=== PATIENT | female | born 1995 | race Caucasian/White ===

== ENCOUNTER 2018-04-10 15:49 | Inpatient (IN) | payer MEDICAID ==
[2018-04-10] MEDS ORDERED: METHYLERGONOVINE 0.2 MG INJ IM (17:00)
[2018-04-10] MEDS ORDERED: LIDOCAINE 1% (MPF) 30 ML INJ INJ (17:00)
[2018-04-10] MEDS ORDERED: CARBOPROST 250 MCG INJ IM (17:00)
[2018-04-10] MEDS ORDERED: IBUPROFEN 600 MG TAB PO (17:00)
[2018-04-10] MEDS ORDERED: MISOPROSTOL 200 MCG TAB PR (17:00)
[2018-04-10] MEDS ORDERED: OXYTOCIN 30 UNITS/LR 500 ML IV (17:00)
[2018-04-10] MEDS ORDERED: BUTORPHANOL 2 MG INJ IV (17:00)
[2018-04-10] MEDS ORDERED: OXYCODONE/ASPIRIN (4.88/325) TAB PO (17:00)
[2018-04-10] MEDS: LACTATED RINGER'S 1,000 ML IV (17:04)
[2018-04-10 17:24] LABS: ADD MAN DIFF? NO
[2018-04-10 17:27] LABS: WHITE BLOOD COUNT 11.3 10^3/ul (4.8-10.8)
[2018-04-10 17:27] LABS: BASOPHILS % 0.4 % (0.0-2.0); EOSINOPHILS # 0.1 10^3/ul (0.0-0.5); EOSINOPHILS % 0.9 % (0.0-7.0); HEMOGLOBIN 12.5 g/dl (12.0-16.0); LYMPHOCYTES # 1.9 10^3/ul (0.8-2.9); LYMPHOCYTES % 16.5 % (15.0-51.0); MEAN CORPUSCULAR HEMOGLOBIN 28.9 pg (29.0-33.0); MEAN CORPUSCULAR HGB CONC 33.8 g/dl (32.0-37.0); MEAN CORPUSCULAR VOLUME 85.5 fl (82.0-101.0); MEAN PLATELET VOLUME 9.4 fl (7.4-10.4); MONOCYTE # 0.7 10^3/ul (0.3-0.9); MONOCYTES % 6.3 % (0.0-11.0); NEUTROPHIL # 8.5 10^3/ul (1.6-7.5); NEUTROPHILS % 75.4 % (39.0-77.0); PLATELET COUNT 363 10^3/UL (140-415); RED BLOOD COUNT 4.33 10^6/ul (4.20-5.40); RED CELL DISTRIBUTION WIDTH 14.4 % (11.5-14.5)
[2018-04-10 17:48] LABS: INR 0.87; PARTIAL THROMBOPLASTIN TIME 27.9 Sec (23.0-35.0); PROTIME 11.9 Sec (11.9-14.9); PT RATIO 0.9
[2018-04-10 18:15] LABS: HEPATITIS B SURFACE ANTIGEN NEGATIVE (NEGATIVE)
[2018-04-10 22:17] LABS: RAPID PLASMA REAGIN NONREACTIVE (NR)
[2018-04-11] MEDS: LACTATED RINGER'S 1,000 ML IV ×2 (00:14→01:17)
[2018-04-11] MEDS ORDERED: NALOXONE (0.4 MG/ML) INJ IV (01:00)
[2018-04-11] MEDS ORDERED: ONDANSETRON 4 MG INJ IV (01:00)
[2018-04-11] MEDS ORDERED: FENTAnyl 2MCG/ML-ROPIV 0.2% 100 ML BAG EPI (01:00)
[2018-04-11] MEDS: OXYTOCIN 30 UNITS/LR 500 ML IV ×2 (06:48→07:21)
[2018-04-11 06:49] LABS: AMPHETAMINE/METHAMPHETAMINE Negative (NEGATIVE); BARBITURATES Negative (NEGATIVE); BENZODIAZEPINES Negative (NEGATIVE); CANNABINOIDS Negative (NEGATIVE); COCAINE Negative (NEGATIVE); OPIATES Negative (NEGATIVE)
[2018-04-11] MEDS ORDERED: ACETAMINOPHEN 325 MG TAB PO (10:00)
[2018-04-11] MEDS ORDERED: OXYTOCIN 30 UNITS/LR 500 ML IV (10:00)
[2018-04-11] MEDS ORDERED: MISOPROSTOL 200 MCG TAB PR (10:00)
[2018-04-11] MEDS ORDERED: HYDROCODONE/APAP (5/325) TAB PO (10:00)
[2018-04-11] MEDS ORDERED: DIBUCAINE 1% 30 GM OINT TOP (10:00)
[2018-04-11] MEDS ORDERED: METHYLERGONOVINE 0.2 MG INJ IM (10:00)
[2018-04-11] MEDS ORDERED: CARBOPROST 250 MCG INJ IM (10:00)
[2018-04-11] MEDS: BENZOCAINE 20% 56 ML SPRAY TOP (11:03)
[2018-04-11] MEDS: WITCH HAZEL/GLYCERIN PAD PR (11:03)
[2018-04-11] MEDS: IBUPROFEN 600 MG TAB PO ×2 (11:59→18:00)
[2018-04-11] MEDS: LACTATED RINGER'S 1,000 ML IV* ×2 (11:59→17:44)
[2018-04-11] MEDS: SENNA/DOCUSATE NA (8.6MG/50MG) TAB PO (21:21)
[2018-04-12] MEDS: LACTATED RINGER'S 1,000 ML IV* ×2 (01:44→09:44)
[2018-04-12] MEDS: IBUPROFEN 600 MG TAB PO ×4 (06:06→17:32)
[2018-04-12 06:46] LABS: ADD MAN DIFF? NO
[2018-04-12 06:47] LABS: WHITE BLOOD COUNT 12.5 10^3/ul (4.8-10.8)
[2018-04-12 06:47] LABS: BASOPHIL # 0.1 10^3/ul (0.0-0.1); BASOPHILS % 0.4 % (0.0-2.0); EOSINOPHILS # 0.2 10^3/ul (0.0-0.5); EOSINOPHILS % 1.4 % (0.0-7.0); HEMATOCRIT 31.7 % (37.0-47.0); HEMOGLOBIN 10.5 g/dl (12.0-16.0); LYMPHOCYTES # 2.2 10^3/ul (0.8-2.9); LYMPHOCYTES % 17.6 % (15.0-51.0); MEAN CORPUSCULAR HGB CONC 33.1 g/dl (32.0-37.0); MEAN CORPUSCULAR VOLUME 87.6 fl (82.0-101.0); MEAN PLATELET VOLUME 9.3 fl (7.4-10.4); MONOCYTE # 0.9 10^3/ul (0.3-0.9); MONOCYTES % 7.3 % (0.0-11.0); NEUTROPHIL # 9.1 10^3/ul (1.6-7.5); NEUTROPHILS % 72.7 % (39.0-77.0); PLATELET COUNT 273 10^3/UL (140-415); RED BLOOD COUNT 3.62 10^6/ul (4.20-5.40); RED CELL DISTRIBUTION WIDTH 14.9 % (11.5-14.5)
[2018-04-12] MEDS: SENNA/DOCUSATE NA (8.6MG/50MG) TAB PO ×2 (09:53→20:46)
[2018-04-13] MEDS: IBUPROFEN 600 MG TAB PO ×3 (00:15→11:58)
[2018-04-13] MEDS: SENNA/DOCUSATE NA (8.6MG/50MG) TAB PO (09:20)
[2018-04-13] MEDS: DIPHTH/TET/ACEL PERTUSS (ADULT) 0.5 ML VIAL IM* (09:21)
== END 2018-04-13 12:30 | disposition home or self-care (01) | DRG 807 ==
LOC: OBT 15:49 → PP1 04-11 09:49 → L-D 15:51 → OBT 16:30 → L-D 16:30
PROVIDERS: Obstetrics & Gynecology
PROC: 10E0XZZ Delivery of Products of Conception, External Approach (ICD-10-PCS; principal; 2018-04-11)
PROC: 0KQM0ZZ Repair Perineum Muscle, Open Approach (ICD-10-PCS; 2018-04-11)
DX: O70.1 Second degree perineal laceration during delivery (principal); Z37.0 Single live birth; Z3A.39 39 weeks gestation of pregnancy
CPT/HCPCS: 62319; 76815; 76818; 80307; 85025; 85610; 85730; 86592; 86850; 86900; 86901; 87340

== ENCOUNTER 2018-05-25 18:24 | Emergency (ER) | payer SELFPAY, MEDICAID | END 2018-05-25 22:30 | disposition left against medical advice (07) | LOC: FTE 18:24 | DX: Z53.21 Procedure and treatment not carried out due to patient leaving prior to being seen by health care provider (principal) ==

== ENCOUNTER 2018-06-23 10:27 | Emergency (ER) | payer MEDICAID ==
[2018-06-23] MEDS: LIDOCAINE/MYLANTA 40 ML BTL PO (11:10)
[2018-06-23] MEDS: BELLADONNA/PHENOBARBITAL TAB PO (11:10)
[2018-06-23 11:27] LABS: ADD MAN DIFF? NO
[2018-06-23 11:38] LABS: BASOPHILS % 0.4 % (0.0-2.0); EOSINOPHILS # 0.2 10^3/ul (0.0-0.5); EOSINOPHILS % 1.5 % (0.0-7.0); HEMATOCRIT 41.1 % (37.0-47.0); HEMOGLOBIN 14.2 g/dl (12.0-16.0); LYMPHOCYTES # 2.4 10^3/ul (0.8-2.9); LYMPHOCYTES % 23.9 % (15.0-51.0); MEAN CORPUSCULAR HEMOGLOBIN 29.8 pg (29.0-33.0); MEAN CORPUSCULAR HGB CONC 34.5 g/dl (32.0-37.0); MEAN CORPUSCULAR VOLUME 86.2 fl (82.0-101.0); MONOCYTE # 0.5 10^3/ul (0.3-0.9); MONOCYTES % 5.1 % (0.0-11.0); NEUTROPHIL # 6.8 10^3/ul (1.6-7.5); NEUTROPHILS % 68.7 % (39.0-77.0); RED BLOOD COUNT 4.77 10^6/ul (4.20-5.40); RED CELL DISTRIBUTION WIDTH 13.9 % (11.5-14.5)
[2018-06-23 11:38] LABS: WHITE BLOOD COUNT 9.9 10^3/ul (4.8-10.8)
[2018-06-23 11:40] LABS: PLATELET COUNT 393 10^3/UL (140-415); POSITIVE DIFF @See below
[2018-06-23 11:47] LABS: ADD UMIC YES; UR ASCORBIC ACID NEGATIVE (NEGATIVE); UR BACTERIA FEW /HPF (NONE SEEN); UR BILIRUBIN (Dip) NEGATIVE (NEGATIVE); UR BLOOD (Dip) 3+ mg/dL (NEGATIVE); UR CLARITY CLOUDY (CLEAR); UR COLOR YELLOW (YELLOW); UR GLUCOSE (Dip) NEGATIVE (NEGATIVE); UR KETONES (Dip) NEGATIVE (NEGATIVE); UR LEUKOCYTE ESTERASE (Dip) 3+ Leu/ul (NEGATIVE); UR MUCUS FEW /HPF (NONE SEEN); UR NITRITE (Dip) NEGATIVE (NEGATIVE); UR RBC 83 /HPF (0-5); UR SPECIFIC GRAVITY (Dip) 1.018 (1.003-1.030); UR SQUAMOUS EPITHELIAL CELL MANY /HPF (FEW); UR TOTAL PROTEIN (Dip) NEGATIVE (NEGATIVE); UR UROBILINOGEN (Dip) NEGATIVE (NEGATIVE); UR WBC 70 /HPF (0-5)
[2018-06-23 11:48] LABS: ALANINE AMINOTRANSFERASE 125 IU/L (13-69); ALBUMIN 4.5 g/dl (3.3-4.9); ALBUMIN/GLOBULIN RATIO 1.09; ALKALINE PHOSPHATASE 158 IU/L (42-121); ANION GAP 11 (5-13); ASPARTATE AMINO TRANSFERASE 97 IU/L (15-46); BILIRUBIN,INDIRECT 0.4 mg/dl (0-1.1); BILIRUBIN,TOTAL 0.4 mg/dl (0.2-1.3); BLOOD UREA NITROGEN 10 mg/dl (7-20); CALCIUM 9.7 mg/dl (8.4-10.2); CARBON DIOXIDE 23 mmol/L (21-31); CHLORIDE 110 mmol/L (97-110); CREATININE 0.64 mg/dl (0.44-1.00); Estimated GFR > 60 mL/min (>60); GLUCOSE 87 mg/dl (70-220); LIPASE 74 U/L (23-300); POTASSIUM 4.2 mmol/L (3.5-5.1); SODIUM 144 mmol/L (135-144); TOTAL PROTEIN 8.6 g/dl (6.1-8.1)
== END 2018-06-23 12:09 | disposition home or self-care (01) ==
LOC: FTE 12:09
DX: N39.0 Urinary tract infection, site not specified (principal); K80.20 Calculus of gallbladder without cholecystitis without obstruction
CPT/HCPCS: 36415; 76705; 80053; 81001; 81025; 83690; 85025; 99284-25

== ENCOUNTER 2018-07-11 22:18 | Emergency (ER) | payer MEDICAID ==
[2018-07-12] MEDS: LIDOCAINE/MYLANTA 40 ML BTL PO (03:37)
[2018-07-12 03:44] LABS: ADD MAN DIFF? NO
[2018-07-12 03:46] LABS: BASOPHIL # 0.1 10^3/ul (0.0-0.1); BASOPHILS % 0.6 % (0.0-2.0); EOSINOPHILS # 0.3 10^3/ul (0.0-0.5); EOSINOPHILS % 3.1 % (0.0-7.0); HEMATOCRIT 37.1 % (37.0-47.0); HEMOGLOBIN 12.4 g/dl (12.0-16.0); LYMPHOCYTES # 2.4 10^3/ul (0.8-2.9); LYMPHOCYTES % 25.4 % (15.0-51.0); MEAN CORPUSCULAR HGB CONC 33.4 g/dl (32.0-37.0); MEAN CORPUSCULAR VOLUME 86.7 fl (82.0-101.0); MEAN PLATELET VOLUME 8.7 fl (7.4-10.4); MONOCYTE # 0.5 10^3/ul (0.3-0.9); MONOCYTES % 5.3 % (0.0-11.0); NEUTROPHIL # 6.2 10^3/ul (1.6-7.5); NEUTROPHILS % 65.2 % (39.0-77.0); PLATELET COUNT 400 10^3/UL (140-415); RED BLOOD COUNT 4.28 10^6/ul (4.20-5.40); RED CELL DISTRIBUTION WIDTH 13.2 % (11.5-14.5)
[2018-07-12 03:46] LABS: WHITE BLOOD COUNT 9.6 10^3/ul (4.8-10.8)
[2018-07-12 03:54] LABS: ADD UMIC YES; UR ASCORBIC ACID NEGATIVE (NEGATIVE); UR BILIRUBIN (Dip) NEGATIVE (NEGATIVE); UR BLOOD (Dip) NEGATIVE (NEGATIVE); UR CLARITY SLIGHTLY CLOUDY (CLEAR); UR COLOR YELLOW (YELLOW); UR GLUCOSE (Dip) NEGATIVE (NEGATIVE); UR KETONES (Dip) NEGATIVE (NEGATIVE); UR LEUKOCYTE ESTERASE (Dip) TRACE Leu/ul (NEGATIVE); UR MUCUS FEW /HPF (NONE SEEN); UR NITRITE (Dip) NEGATIVE (NEGATIVE); UR RBC 1 /HPF (0-5); UR SPECIFIC GRAVITY (Dip) 1.028 (1.003-1.030); UR SQUAMOUS EPITHELIAL CELL FEW /HPF (FEW); UR TOTAL PROTEIN (Dip) NEGATIVE (NEGATIVE); UR UROBILINOGEN (Dip) NEGATIVE (NEGATIVE); UR WBC 2 /HPF (0-5)
[2018-07-12 04:20] LABS: ALANINE AMINOTRANSFERASE 113 IU/L (13-69); ALBUMIN 4.2 g/dl (3.3-4.9); ALBUMIN/GLOBULIN RATIO 1.07; ALKALINE PHOSPHATASE 162 IU/L (42-121); ANION GAP 10 (5-13); ASPARTATE AMINO TRANSFERASE 97 IU/L (15-46); BILIRUBIN,INDIRECT 0.2 mg/dl (0-1.1); BILIRUBIN,TOTAL 0.2 mg/dl (0.2-1.3); BLOOD UREA NITROGEN 9 mg/dl (7-20); CALCIUM 9.6 mg/dl (8.4-10.2); CARBON DIOXIDE 25 mmol/L (21-31); CHLORIDE 109 mmol/L (97-110); CREATININE 0.57 mg/dl (0.44-1.00); Estimated GFR > 60 mL/min (>60); GLUCOSE 101 mg/dl (70-220); LIPASE 63 U/L (23-300); POTASSIUM 4.2 mmol/L (3.5-5.1); SODIUM 144 mmol/L (135-144); TOTAL PROTEIN 8.1 g/dl (6.1-8.1)
== END 2018-07-12 05:04 | disposition home or self-care (01) ==
LOC: FTE 22:18
DX: R10.13 Epigastric pain (principal)
CPT/HCPCS: 36415; 80053; 81001; 81025; 83690; 85025; 99283